=== PATIENT | male | born 1995 | race Caucasian/White ===

== ENCOUNTER 2020-10-21 21:04 | Emergency (ER) | payer OTHER ==
[~2020-10-21] VITALS: Ht 182.8 cm; Wt 138.3 kg
[2020-10-21] MEDS ORDERED: NAPROSYN500 MG PO (22:43)
[2020-10-21] MEDS ORDERED: ROBAXIN-750750 MG PO (22:43)
== END 2020-10-21 22:57 | disposition home or self-care (01) ==
LOC: ED 21:04
DX: S39.012A Strain of muscle, fascia and tendon of lower back, initial encounter (principal); X58.XXXA Exposure to other specified factors, initial encounter; Y93.89 Activity, other specified; Y92.89 Other specified places as the place of occurrence of the external cause; Y99.8 Other external cause status